=== PATIENT | female | born 1995 | race Caucasian/White ===

== ENCOUNTER 2020-04-10 04:26 | Emergency (ER) | payer BC ==
[2020-04-10] MEDS ORDERED: AZITHROMYCIN 250 MG TABLET PO ONE (08:22)
[2020-04-10] MEDS ORDERED: FLUCONAZOLE 100 MG TABLET PO ONE (08:22)
[2020-04-10] MEDS ORDERED: CEFTRIAXONE INJ 250 MG VIAL IM ONE (08:27)
--- NOTE | 2020-04-10 08:27 | ER Document Report ---
ED GI/ - General Chief Complaint: Vaginal Discharge Stated Complaint: VAGINAL DISCHARGE/MEDICATION REFILL Time Seen by Provider: 04/10/20 08:12 Notes: 24-year-old female with a history of chronic yeast infections presents with vaginal discharge. Patient states she chronically has yeast infections. Feels just the same white discharge. She denies any high risk unprotected sexual contact denies abdominal pain denies nausea vomiting diarrhea. Complains of little burning with urination but nothing significant. She also requests Abilify to be refilled from her prescription. The other complaints chest pain shortness of breath abdominal pain denies any suicidal homicidal thoughts denies visual auditory hallucinations. - Related Data Allergies/Adverse Reactions: No Known Allergies Allergy (Unverified 04/10/20 08:55) Past Medical History - Social History Smoking Status: Current Every Day Smoker Family History: None Review of Systems - Review of Systems Constitutional: denies: Chills, Fever EENT: No symptoms reported Cardiovascular: No symptoms reported Respiratory: No symptoms reported Gastrointestinal: No symptoms reported Genitourinary: denies: Dysuria, Hematuria Female Genitourinary: Vaginal discharge, Vaginal odor. denies: , Vaginal bleeding, Painful intercourse Neurological/Psychological: No symptoms reported -: Yes All other systems reviewed and negative Physical Exam - Vital signs Vitals: Temp Pulse Resp BP Pulse Ox 98.6 F 90 16 118/71 99 04/10/20 05:21 04/10/20 05:21 04/10/20 05:21 04/10/20 05:21 04/10/20 05:21 - Notes Notes: GENERAL_APPEARANCE: well_nourished, alert, cooperative VITALS: reviewed, see vital signs table. HEAD: no_swelling\tenderness on the head. EYES: Sclera anicteric, conjunctiva_clear. NOSE: no_nasal_discharge. MOUTH: (-)decreased moisture. THROAT: no_tonsilar_inflammation, no_airway_obstruction. no_lymphadenopathy NECK: supple, no_neck_tenderness, (-)thyromegaly. BACK: no_back_tenderness. CHEST_WALL: no_chest_tenderness. ABDOMEN: normal_BS, soft, no_abd_tenderness, (-)guarding, (-)rebound, no_organomegaly, no_abd_masses. EXTREMITIES: good pulses in all_extremities, no_swelling\tenderness in the extremities, no_edema. SKIN: warm, dry, good_color, no_rash. MENTAL_STATUS: speech_clear, oriented_X_3, normal_affect, respon ds_appropriately to questions. PSYCH: Denies suicidal homicidal thoughts denies visual auditory hallucinations Course - Re-evaluation Re-evalutation: 04/10/20 08:26 24-year-old female presents to ER complaining of recurrent yeast infections. We will check a urine for the patient. The patient Diflucan. Will cover for chlamydia with a gram of Zithromax. We will give 250 of ceftriaxone. We will have the patient self swab. Patient requests a prescription for Abilify she is out she does not have appointment till next month with her psychiatrist. I will refill this. She has no dangerous psychiatric symptoms at this time. 04/10/20 08:56 Gonorrhea and Chlamydia are pending. We have prophylactically treated the patient for STDs. She does have WBC cells on the wet prep likely some bacterial vaginosis. We will discharge her home on Diflucan and Flagyl - Vital Signs Vital signs: Temp Pulse Resp BP Pulse Ox 98.6 F 90 16 118/71 99 04/10/20 05:21 04/10/20 05:21 04/10/20 05:21 04/10/20 05:21 04/10/20 05:21 - Laboratory Laboratory results interpreted by me: 04/10/20 07:15 Ur Leukocyte Esterase LARGE H Discharge - Discharge Clinical Impression: Yeast infection involving the vagina and surrounding area, BV (bacterial vaginosis) Condition: Good Disposition: HOME, SELF-CARE Instructions: Vaginosis, Bacterial ([facility]), Vaginal Yeast Infection ([facility]) Prescriptions: Aripiprazole [Abilify 5 mg Tablet] 5 mg PO DAILY #30 tablet Fluconazole [Diflucan 100 Mg Tablet] 100 mg PO DAILY #5 tablet Metronidazole [Flagyl 500 mg Tablet] 2,000 mg PO ONCE #4 tablet
[2020-04-10 08:39] LABS: BACTERIA (WET MOUNT) 3+ BACTERIA SEEN; EPITHELIALS (WET MOUNT) 3+ EPITHELIALS SEEN; RBCS (WET MOUNT) FEW RBCS SEEN; T.VAGINALIS (WET MOUNT) NO TRICHOMONAS SEEN; WBCS (WET MOUNT) 2+ WBCS SEEN; YEAST (WET MOUNT) YEAST SEEN
[2020-04-10 08:51] LABS: APPEARANCE,URINE SLIGHTLY-CLOUDY; BILIRUBIN,URINE NEGATIVE (NEGATIVE); COLOR,URINE YELLOW; GLUCOSE, URINE NEGATIVE (NEGATIVE); KETONES,URINE NEGATIVE (NEGATIVE); LEUKOCYTE ESTERASE,URINE LARGE (NEGATIVE); NITRITE,URINE NEGATIVE (NEGATIVE); PROTEIN,URINE NEGATIVE (NEGATIVE); URINE SPECIFIC GRAVITY 1.018; UROBILINOGEN,URINE NEGATIVE mg/dL (<2.0)
[2020-04-10 09:08] VITALS: BP 119/70
[2020-04-10 10:14] LABS: CHLAM PCR NOT DETECTED (NOT DETECT)
== END 2020-04-10 09:10 | disposition home or self-care (01) ==
LOC: EDBD → ER 04:26
DX: B37.3 Candidiasis of vulva and vagina (principal); N76.0 Acute vaginitis; B96.89 Other specified bacterial agents as the cause of diseases classified elsewhere; F17.200 Nicotine dependence, unspecified, uncomplicated
CPT/HCPCS: 99283; 96372; 87210; 81001; 87491; 87591; J0696

== ENCOUNTER 2020-04-22 21:55 | Emergency (ER) | payer BC ==
[2020-04-22 22:10] VITALS: BP 120/80
--- NOTE | 2020-04-22 22:41 | ER Document Report ---
ED Medical Screen (RME) - General Chief Complaint: Shoulder Injury Stated Complaint: LEFT SHOULDER OUT OF PLACE Time Seen by Provider: 04/22/20 22:36 Notes: Patient is a 24-year-old female who presents emergency department with a chief complaint of left shoulder pain. Patient states that she was working at [employer] and she went to go lift a palate and her shoulder slipped out of place. Patient has history of 3 shoulder surgeries in the past. Her last one was 6 months ago at [facility]. Exam: Shoulder appears possibly dislocated. Capillary refill less than 3 seconds. Patient is able to move digits with no difficulty. I have greeted and performed a rapid initial assessment of this patient. A comprehensive ED assessment and evaluation of the patient, analysis of test results and completion of medical decision making process will be conducted by an additional ED providers. - Related Data Allergies/Adverse Reactions: No Known Allergies Allergy (Unverified 04/10/20 08:55) Physical Exam - Vital signs Vitals: Temp Pulse Resp BP Pulse Ox 97.9 F 96 16 120/80 98 04/22/20 22:08 04/22/20 22:08 04/22/20 22:08 04/22/20 22:08 04/22/20 22:08 Course - Vital Signs Vital signs: Temp Pulse Resp BP Pulse Ox 97.9 F 96 16 120/80 98 04/22/20 22:08 04/22/20 22:08 04/22/20 22:08 04/22/20 22:08 04/22/20 22:08
--- NOTE | 2020-04-22 22:56 | RADIOLOGY REPORT (SQ) ---
EXAM DESCRIPTION: XR SHOULDER 2 OR MORE VIEWS COMPLETED DATE/TME: 04/22/2020 22:16 CLINICAL HISTORY: 24 years, Female, left shoulder pain COMPARISON: Prior study from 06/22/2019 NUMBER OF VIEWS: 3 TECHNIQUE: Internal/external and transscapular Y projections were obtained LIMITATIONS: None. FINDINGS: Visualized are 2 fully threaded screws traverse the glenoid as well as a suture anchor about the posterior aspect of the humeral head, postsurgical in etiology. Hardware appears well seated and intact. Underlying glenohumeral joint arthrosis is noted, similar to the prior. In addition, the distal acromion appears slightly elevated relative to the distal clavicle. However, the coracoclavicular distance appears within normal limits. Visualized portions of the left lung are clear. No acute fracture or dislocation. IMPRESSION: Postsurgical changes, as above. Underlying glenohumeral joint arthrosis. Slight elevation of the distal clavicle relative to the distal acromion. This raises the possibility of an AC joint separation; however, the coracoclavicular distance appears normal. copyright 2010 [employer] [facility] [facility]- All Rights Reserved
[2020-04-22] MEDS ORDERED: HYDROCODONE/ACETAMINOPHEN 5-325 MG TABLET PO ONE (22:57)
[2020-04-22] MEDS ORDERED: KETOROLAC TROMETHAMINE 60 MG/2 ML SDV IM ONE (22:58)
== END 2020-04-22 23:55 | disposition left against medical advice (07) ==
LOC: ER 21:55
DX: Z53.20 Procedure and treatment not carried out because of patient's decision for unspecified reasons (principal); M25.512 Pain in left shoulder; X50.0XXA Overexertion from strenuous movement or load, initial encounter
CPT/HCPCS: 99281

== ENCOUNTER 2020-06-25 05:55 | Emergency (ER) | payer BC ==
[2020-06-25 07:44] LABS: APPEARANCE,URINE SLIGHTLY-CLOUDY; BILIRUBIN,URINE NEGATIVE (NEGATIVE); COLOR,URINE YELLOW; GLUCOSE, URINE NEGATIVE (NEGATIVE); KETONES,URINE NEGATIVE (NEGATIVE); LEUKOCYTE ESTERASE,URINE NEGATIVE (NEGATIVE); NITRITE,URINE NEGATIVE (NEGATIVE); PROTEIN,URINE NEGATIVE (NEGATIVE); UROBILINOGEN,URINE NEGATIVE mg/dL (<2.0)
[2020-06-25 07:58] LABS: URINE AMPHETAMINES SCREEN NEGATIVE; URINE BARBITURATES SCREEN NEGATIVE; URINE BENZODIAZEPINES SCREEN NEGATIVE; URINE COCAINE SCREEN NEGATIVE; URINE MARIJUANA (THC) SCREEN NEGATIVE; URINE METHADONE SCREEN NEGATIVE; URINE PHENCYCLIDINE SCREEN NEGATIVE
[2020-06-25 09:18] LABS: BACTERIA (WET MOUNT) 3+ BACTERIA SEEN; EPITHELIALS (WET MOUNT) 4+ EPITHELIALS SEEN; RBCS (WET MOUNT) NO RBCS SEEN; T.VAGINALIS (WET MOUNT) NO TRICHOMONAS SEEN; WBCS (WET MOUNT) NO WBCS SEEN; YEAST (WET MOUNT) NO YEAST SEEN
[2020-06-25 10:49] LABS: CHLAM PCR NOT DETECTED (NOT DETECT)
--- NOTE | 2020-06-25 10:57 | ER Document Report ---
Entered by CONCEPCION FLORES SCRIBE 06/25/20 0633 Acting as scribe for:ELIAS SILVERIO MD ED GI/ - General Chief Complaint: STD Exposure Stated Complaint: STD EXPOSURE Mode of Arrival: Ambulatory Information source: Patient Notes: This 25 year old female patient presents to the ED today for evaluation of segura vaginal discharge and vaginal odor. Patient reports that her partner recently te sted positive for Trichomonas and is requesting to be tested for STDs. Denies fever, chills, nausea, vomiting, sore throat, or . LMP was x3 weeks ago. - Related Data Allergies/Adverse Reactions: No Known Allergies Allergy (Unverified 04/10/20 08:55) Home Medications: abilify Past Medical History - General Information source: Patient - Social History Smoking Status: Current Every Day Smoker Chew tobacco use (# tins/day): No Smoking Education Provided: No Frequency of alcohol use: None Drug Abuse: None Family History: Reviewed & Not Pertinent, Other - Crohn's Disease Patient has suicidal ideation: No Patient has homicidal ideation: No Psychiatric Medical History: Reports: Hx Anxiety, Hx Borderline Personality Disorder, Hx Depression Review of Systems - Review of Systems Constitutional: See HPI. denies: Chills, Fever EENT: See HPI. denies: Throat pain Cardiovascular: No symptoms reported Respiratory: No symptoms reported Gastrointestinal: See HPI. denies: Nausea, Vomiting Genitourinary: No symptoms reported Female Genitourinary: See HPI, Last menstrual period - x3 weeks ago, Vaginal discharge, Vaginal odor. denies: Musculoskeletal: No symptoms reported Skin: No symptoms reported Hematologic/Lymphatic: No symptoms reported Neurological/Psychological: No symptoms reported -: Yes All other systems reviewed and negative Physical Exam - Vital signs Vitals: Temp Pulse Resp BP Pulse Ox 97.7 F 108 H 16 124/79 100 06/25/20 06:05 06/25/20 06:05 06/25/20 06:05 06/25/20 06:05 06/25/20 06:05 - General General appearance: Appears well, Alert In distress: None - HEENT Head: Normocephalic, Atraumatic Eyes: Normal Pupils: PERRL Mucous membranes: Normal Pharynx: Normal. No: Erythema Neck: Normal, Supple - Respiratory Respiratory status: No respiratory distress Chest status: Nontender Breath sounds: Normal Chest palpation: Normal - Cardiovascular Rhythm: Regular Heart sounds: Normal auscultation, S1 appreciated, S2 appreciated Murmur: No Friction rub: No Gallop: None auscultated - Abdominal Inspection: Normal Distension: No distension Bowel sounds: Normal Tenderness: Nontender - Abdomen soft Organomegaly: No organomegaly - Back Back: Normal, Nontender - Extremities General upper extremity: Normal inspection General lower extremity: Normal inspection. No: Edema - Neurological Neuro grossly intact: Yes Orientation: AAOx4 [place] Coma Scale Eye Opening: Spontaneous [place] Coma Scale Verbal: Oriented [place] Coma Scale Motor: Obeys Commands [place] Coma Scale Total: 15 - Psychological Associated symptoms: Normal affect, Normal mood - Skin Skin Temperature: Warm Skin Moisture: Dry Skin Color: Normal Skin irregularity: negative: Rash Course - Re-evaluation Re-evalutation: 06/25/20 10:15 Patient resting comfortably in room not showing any distress at this time - Vital Signs Vital signs: Temp Pulse Resp BP Pulse Ox 97.7 F 108 H 16 124/79 100 06/25/20 06:05 06/25/20 06:05 06/25/20 06:05 06/25/20 06:05 06/25/20 06:05 06/25/20 10:15 Vital signs stable - Laboratory Laboratory results interpreted by me: Urinalysis cloudy wet prep shows 3+ bacteria no trichomonas no yeast. 06/25/20 10:55 PCR chlamydia gonorrhea both are negative. 06/25/20 10:56 Urine Color YELLOW 06/25/20 07:15 Urine Appearance SLIGHTLY-CLOUDY 06/25/20 07:15 Urine pH 5.0 (5.0-9.0) 06/25/20 07:15 Ur Specific [place] 1.030 06/25/20 07:15 Urine Protein NEGATIVE mg/dL (NEGATIVE) 06/25/20 07:15 Urine Glucose (UA) NEGATIVE mg/dL (NEGATIVE) 06/25/20 07:15 Urine Ketones NEGATIVE mg/dL (NEGATIVE) 06/25/20 07:15 Urine Blood NEGATIVE (NEGATIVE) 06/25/20 07:15 Urine Nitrite NEGATIVE (NEGATIVE) 06/25/20 07:15 Ur Leukocyte Esterase NEGATIVE (NEGATIVE) 06/25/20 07:15 Urine WBC (Auto) 2 /HPF 06/25/20 07:15 Urine RBC (Auto) 1 /HPF 06/25/20 07:15 Discharge - Discharge Clinical Impression: BV (bacterial vaginosis) Condition: Stable Disposition: HOME, SELF-CARE Additional Instructions: Vaginitis Your exam shows that you have vaginitis, a vaginal infection. The infection can be caused by a many different organisms, including trichomonas or Gardnerella. The usual symptoms are vaginal irritation and discharge. The treatment is usually antibiotics such as Flagyl. Laboratory tests can determine which germ is responsible. Use the medication as prescribed. Because this infection can be transmitted sexually, your sexual partner may need to be checked and treated also. If your physician has not discussed this with you, please check before resuming sexual relations. If a culture shows gonorrhea or chlamydia, the infection must be reported to the health department. Call the doctor if you develop pelvic pain, fever, or problems with urination, or if you don't improve as expected. Prescriptions: Metronidazole [Flagyl 500 mg Tablet] 500 mg PO Q6H #28 tablet Azithromycin [Zithromax] 1 gm PO ONCE PRN #1 packet PRN Reason: Ondansetron [Zofran Odt 4 mg Tablet] 1 - 2 tab PO Q4H PRN #15 tab.rapdis PRN Reason: For Nausea/Vomiting I personally performed the services described in the documentation, reviewed and edited the documentation which was dictated to the scribe in my presence, and it accurately records my words and actions.
[2020-06-25 11:06] VITALS: BP 116/74
== END 2020-06-25 11:02 | disposition home or self-care (01) ==
LOC: ER 05:55
DX: N76.0 Acute vaginitis (principal); B96.89 Other specified bacterial agents as the cause of diseases classified elsewhere; F17.200 Nicotine dependence, unspecified, uncomplicated
CPT/HCPCS: 80307; 81001; 81025; 87086; 87088; 87210; 87491; 87591; 99283